=== PATIENT | female | born 1930 | race Caucasian/White ===

== ENCOUNTER 2020-11-01 03:46 | Observation (INO) ==
[2020-11-01] MEDS ORDERED: ASPIRIN EC 325 MG TABLET PO STA (04:08)
[2020-11-01] MEDS ORDERED: NITROGLYCERIN SL 0.4 MG TABLET SL STA (04:08)
[2020-11-01 04:51] LABS: Basophils # 0.1 10*3/uL (0.0-0.2); Basophils % 0.8 % (0.0-0.8); Eosinophils # 0.1 10*3/uL (0.0-0.87); Eosinophils % 1.8 % (0.00-10.9); Hematocrit 38.3 VOL% (35.7-47.0); Hemoglobin 12.9 GM/DL (12.0-16.0); Immature Granulocytes % 0.3 %; Immature Granulocytes Absolute 0.02 #; Lymphocytes # 0.9 10*3/uL (1.4-4.0); Lymphocytes % 14.8 % (21.3-54.2); Mean Corpuscular HGB Conc 33.7 GM/DL (32-36); Mean Corpuscular Volume 97.7 FL (87-102); Mean Platelet Volume 9.4 FL (9.6-12.0); Monocytes % 10.1 % (1.7-12.7); Neutrophils % 72.2 % (38.7-73.9); Platelet Count 285 T/CUMM (130-400); Red Blood Count 3.92 MC/CUMM (3.8-5.5); Red Cell Distribution Width 12.6 % (9.3-17.3)
[2020-11-01 05:09] LABS: Bilirubin,Urine Negative (Negative); Blood, Urine Negative (Negative); Glucose,Urine (UA) Negative (Negative); Ketones,Urine Negative (Negative); Nitrite,Urine Negative (Negative); Protein,Urine Negative; RBC,Urine 2 /HPF (0-4); Squamous Epithelial Cell,Urine Occasional /HPF (0-10); Urine Appearance CLEAR (Clear); Urine Color Yellow (Yellow); Urine Specific Gravity 1.011 (1.001-1.035); Urine Urobilinogen < 2.0 EU/DL (0.2-1.0); WBC,Urine <1 /HPF (0-6)
[2020-11-01 05:10] LABS: INR 1.1; Partial Thromboplastin Time 28.7 SECS (23.9-33.8)
[2020-11-01 05:13] LABS: Albumin 3.2 G/DL (3.4-5.0); Bilirubin,Total 0.9 MG/DL (0.2-1.0); Calcium 9.5 MG/DL (8.5-10.1); Potassium 4.1 MMOL/L (3.5-5.1); Total Protein 6.9 G/DL (6.4-8.2)
[2020-11-01] MEDS ORDERED: DOCUSATE SODIUM 100 MG CAPSULE PO PRN (06:15)
[2020-11-01] MEDS ORDERED: ONDANSETRON 4 MG/2 ML VIAL IV PRN (06:15)
[2020-11-01] MEDS ORDERED: DEXTROSE 50% 25 GM/50 ML VIAL IV PRN (06:15)
[2020-11-01] MEDS ORDERED: ACETAMINOPHEN 325 MG TABLET PO PRN (06:15)
[2020-11-01] MEDS ORDERED: GLUCAGON 1 MG VIAL IM PRN (06:15)
[2020-11-01] MEDS ORDERED: ENOXAPARIN 40 MG/0.4 ML SYRINGE SUBCUT SCH (06:30)
[2020-11-01] MEDS ORDERED: amLODIPine 5 MG TABLET PO SCH (09:00)
[2020-11-01] MEDS ORDERED: ASPIRIN EC 81 MG TABLET PO SCH (09:00)
[2020-11-01] MEDS ORDERED: hydrALAZINE 20 MG/1 ML VIAL IV PRN (10:06)
[2020-11-01] MEDS: OXYBUTYNIN XL 5 MG TABLET PO SCH (10:15)
[2020-11-01] MEDS: MEMANTINE 10 MG TABLET PO SCH ×2 (10:15→20:18)
[2020-11-01] MEDS: DONEPEZIL 10 MG TABLET PO SCH (10:15)
[2020-11-01] MEDS: carvediloL 6.25 MG TABLET PO SCH ×2 (10:15→20:18)
[2020-11-01] MEDS: LIDOCAINE 5% PATCH TRANSDERM SCH (15:27)
[2020-11-01] MEDS: HYDROmorphone 2 MG/1 ML VIAL IV PRN (20:07)
[2020-11-01] MEDS ORDERED: SIMVASTATIN 10 MG TABLET PO SCH (21:00)
[2020-11-02 06:08] LABS: Basophils % 0.8 % (0.0-0.8); Eosinophils # 0.1 10*3/uL (0.0-0.87); Eosinophils % 1.6 % (0.00-10.9); Hematocrit 51.1 VOL% (35.7-47.0); Immature Granulocytes % 0.3 %; Immature Granulocytes Absolute 0.01 #; Lymphocytes # 0.8 10*3/uL (1.4-4.0); Lymphocytes % 22.4 % (21.3-54.2); Mean Corpuscular HGB Conc 33.3 GM/DL (32-36); Mean Corpuscular Volume 99.4 FL (87-102); Mean Platelet Volume 9.6 FL (9.6-12.0); Monocytes % 10.4 % (1.7-12.7); Neutrophils % 64.5 % (38.7-73.9); Platelet Count 161 T/CUMM (130-400); Red Blood Count 5.14 MC/CUMM (3.8-5.5); Red Cell Distribution Width 12.4 % (9.3-17.3); White Blood Count 3.8 T/CUMM (4-12)
[2020-11-02 06:12] LABS: Calcium 9.2 MG/DL (8.5-10.1)
[2020-11-02 06:22] LABS: Free T4 (Free Thyroxine) 1.43 NG/DL (0.76-1.46); Thyroid Stimulating Hormone 0.579 uIU/ml (0.358-3.74)
[2020-11-02 07:07] LABS: Eosinophils 1 % (0-10); Lymphocytes 24 % (20-55); Metamyelocytes 2 %; Segmented Neutrophils 70 % (50-85); Total Cells Counted 100
[2020-11-02 07:09] LABS: Atypical Lymphocytes Few; Hypochromasia Slight; Reactive Lymphocytes Few; Schistocytes Few
[2020-11-02 07:10] LABS: Platelet Estimate Adequate
[2020-11-02] MEDS: HYDROmorphone 2 MG/1 ML VIAL IV PRN (08:11)
[2020-11-02] MEDS: carvediloL 6.25 MG TABLET PO SCH (08:12)
[2020-11-02] MEDS: OXYBUTYNIN XL 5 MG TABLET PO SCH (08:12)
[2020-11-02] MEDS: MEMANTINE 10 MG TABLET PO SCH (08:12)
[2020-11-02] MEDS: DONEPEZIL 10 MG TABLET PO SCH (08:12)
[2020-11-02] MEDS: LIDOCAINE 5% PATCH TRANSDERM SCH (08:12)
[2020-11-02] MEDS ORDERED: amLODIPine 5 MG TABLET PO SCH (09:00)
[2020-11-02 11:28] VITALS: BP 137/60
== END 2020-11-02 13:04 | disposition hospice, home (50) ==
LOC: N.ED 03:46 → N.EDINP 03:46 → N.3E 07:33
PROVIDERS: ADMIT Internal Medicine; ATTEND Internal Medicine